=== PATIENT | male | born 1980 | race Caucasian/White ===

== ENCOUNTER 2018-12-03 21:11 | Emergency (ER) | payer BC ==
[~2018-12-03] VITALS: Ht 162.6 cm; Wt 63.2 kg
[2018-12-03 21:15] VITALS: BP 139/79; TEMP 98.9
[2018-12-03 22:34] VITALS: PULSE 78
== END 2018-12-03 22:25 | disposition home or self-care (01) ==
LOC: COL.ER 21:11
DX: S43.004A Unspecified dislocation of right shoulder joint, initial encounter (principal); W19.XXXA Unspecified fall, initial encounter; Y92.830 Public park as the place of occurrence of the external cause; Y93.64 Activity, baseball
CPT/HCPCS: J2060; J3010